=== PATIENT | female | born 2000 | race Caucasian/White ===

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

== ENCOUNTER 2022-03-09 22:48 | Emergency (ER) | payer OTHER ==
[2022-03-09 22:54] VITALS: BP 138/96; PULSE 97; RESP 18; TEMP 97.8
[2022-03-09] MEDS ORDERED: IBUPROFEN 600 MG TAB PO STA (23:56)
--- NOTE | 2022-03-10 00:20 | XR ---
EXAMINATION TYPE: XR hand limited RT DATE OF EXAM: 03/10/2022 COMPARISON: NONE HISTORY: Pain TECHNIQUE: 3 views FINDINGS: Metacarpals are intact. The middle finger appears intact. No fracture. The joint spaces are normal. IMPRESSION: Negative right hand exam.
--- NOTE | 2022-03-10 01:02 | ED ---
General Adult HPI - General Chief complaint: Extremity Injury, Upper Stated complaint: Right Middle Finger Injury Time Seen by Provider: 03/09/22 22:57 Source: patient, RN notes reviewed Mode of arrival: ambulatory Limitations: no limitations - History of Present Illness Initial comments: 21-year-old female presents to the emergency department for evaluation of injury to the distal aspect of the third digit on the right hand. Patient states she smashed her finger in the steel door of a safe at work yesterday. Purchased an [id number] splint to protect the finger while at work today. Reports throbbing discomfort and purpleish discoloration to the majority of the nail. Did not take anything to treat symptoms prior to arrival. Denies any other injuries at this time. - Related Data Previous Rx's Medication Instructions Recorded Clindamycin [Cleocin] 300 mg PO Q6H #28 capsule 04/08/18 Allergies Allergy/AdvReac Type Severity Reaction Status Date / Time No Known Allergies Allergy Verified 03/09/22 22:54 Review of Systems ROS Statement: Those systems with pertinent positive or pertinent negative responses have been documented in the HPI. ROS Other: All systems not noted in ROS Statement are negative. Past Medical History Past Medical History: No Reported History History of Any Multi-Drug Resistant Organisms: MRSA Date of last positivie culture/infection: 04/08/18 MDRO Source:: FINGER Past Surgical History: No Surgical Hx Reported Past Psychological History: No Psychological Hx Reported Smoking Status: Current every day smoker Past Alcohol Use History: None Reported Past Drug Use History: None Reported General Exam Limitations: no limitations General appearance: alert, in no apparent distress Respiratory exam: Present: normal lung sounds bilaterally. Absent: respiratory distress, wheezes, rales, rhonchi, stridor Cardiovascular Exam: Present: regular rate, normal rhythm, normal heart sounds. Absent: systolic murmur, diastolic murmur, rubs, gallop, clicks GI/Abdominal exam: Present: soft, normal bowel sounds. Absent: distended, tenderness, guarding, rebound, rigid Right Elbow exam: Present: normal inspection, full ROM. Absent: tenderness, swelling Forearm Wrist exam: Present: normal inspection, full ROM. Absent: tenderness, swelling Hand Wrist exam: Present: tenderness (Tenderness upon palpation of the distal phalanx of the third digit on the right hand.), subungual hematoma (90%, third digit of the right hand). Absent: full ROM (Third digit right hand Range of motion limited by pain) Vascular: Absent: vascular compromise Neurological exam: Present: alert, oriented X3 Psychiatric exam: Present: normal affect, normal mood Course Vital Signs 03/09/22 22:52 Temperature 97.8 F Pulse Rate 97 Respiratory 18 Rate Blood Pressure 138/96 O2 Sat by Pulse 100 Oximetry Procedures - Procedures Initial comment: Trephination of the nail on third digit of the right hand. Procedure explained and consent obtained. Patient soaked hand in warm soapy water for 25 minutes. Site was cleansed with Betadine then 18-gauge needle was used to kareem hole allowing trapped blood to escape. Patient tolerated procedure well. Is instructed to soak finger in warm soapy water several times daily. Patient verbalizes understanding. Medical Decision Making - Medical Decision Making 21-year-old female with no significant past medical history presents to the emergency department for evaluation of injury to the distal phalanx of third digit on the right hand. Subungual hematoma present. X-ray was obtained due to mechanism of injury and no fracture was seen. Trephination was performed with some relief of symptoms. Patient is instructed on follow-up care. Questions answered, she verbalizes understanding and agrees with this plan. Attending: Yandel. - Radiology Data Radiology results: report reviewed, image reviewed Two-view chest x-ray was obtained. Report was reviewed in its entirety. Impression per Dr. Bailey is negative right hand exam. Disposition Clinical Impression: Subungual hematoma of digit of hand Disposition: HOME SELF-CARE Condition: Stable Instructions (If sedation given, give patient instructions): Subungual Hematoma (ED) Additional Instructions: Soak affected finger in warm soapy water twice daily. Expect there to continue to be some thin bloody drainage from the site. Use splint when working outside of the home. Elevated affected extremity while at rest. Follow up with the PCP for further evaluation and treatment. Return to the emergency department with any fever, red streaking in the finger, or foul-smelling drainage from the wound. Is patient prescribed a controlled substance at d/c from ED?: No Referrals: Js Rehman DO [Primary Care Provider] - 1-2 days Time of Disposition: 01:02
== END 2022-03-10 01:25 | disposition home or self-care (01) ==
LOC: EC 22:48
DX: S60.141A Contusion of right ring finger with damage to nail, initial encounter (principal); F17.200 Nicotine dependence, unspecified, uncomplicated; W22.8XXA Striking against or struck by other objects, initial encounter; Y92.69 Other specified industrial and construction area as the place of occurrence of the external cause; Y99.0 Civilian activity done for income or pay
CPT/HCPCS: 11740; 99283